=== PATIENT | female | born 1945 | race Caucasian/White ===

== ENCOUNTER → 2018-02-01 | Outpatient (CLI) | payer MEDICARE, OTHER | LOC: M.RAD 01-18 11:00 | DX: Z12.31 Encounter for screening mammogram for malignant neoplasm of breast (principal) ==

== ENCOUNTER → 2019-02-04 | Outpatient (CLI) | payer MEDICARE, OTHER | LOC: M.RAD 10:11 | DX: Z12.31 Encounter for screening mammogram for malignant neoplasm of breast (principal) ==

== ENCOUNTER → 2020-01-24 | Outpatient (CLI) | payer MEDICARE, OTHER | LOC: M.RAD 10:38 | PROVIDERS: ATTEND Family Medicine | DX: Z12.31 Encounter for screening mammogram for malignant neoplasm of breast (principal) ==

== ENCOUNTER 2020-05-04 17:50 | Inpatient (IN) | payer MEDICARE, OTHER ==
[~2020-05-04] VITALS: Ht 152.4 cm; Wt 36.3 kg
--- NOTE | ~2020-05-04 | EMS ---
[facility] [address] [place] [address] EMS Patient Care Report Name: MATT MACHUCA Room: [address]#: [id number] Admission: 05/04/20 Attend Phys: Elise Hicks MD Discharge: 05/06/20 Date of : 41 Report #: [id number] THIS REPORT FOR: //name// Report Transmitted: 05/06/2020 16:55 EMS Care Summary [facility] [employer] [facility] Incident [id number] @ 05/04/2020 16:47 Incident Location [address] [place] [address] Patient MATT MACHUCA Female, 74 Years 1945 Patient Address [address] [place] [address] Patient History Hypertension (HTN),Gastric Ulcer,Novel Coronavirus (COVID-19), Patient Allergies Gabapentin,Lipitor, Patient Medications Other, Chief Complaint LUQ and RUQ abdominal pain Disposition Transported No Lights/[place] Reason Abdominal Pain/Problems Transported To [facility] Narrative Upon arrival the patient was found sitting in a chair in her kitchen. The patient was found to be A&O x4 with a GCS of 15. The patient stated her abdomen had begun hurting last night but had gone away. She stated today the pain returned along with vomiting. The patient stated she had vomited 2 times and [place] [address] EMS Patient Care Report Name: SVENMATT Tico Room: [address] IN .R.#: [id number] Admission: 05/04/20 Attend Phys: Elise Hicks MD Discharge: 05/06/20 Date of : 41 Report #: [id number] then called for the ambulance. The patient stated her pain was in the URQ and ULQ rated 6/10. The patient stated currently she had no pain and no nausea but still wanted checked out. Patient advised a history of a perforated ulcer and was worried that it may be happening again. The patient noted tenderness in her LUQ and RLQ in the center. The patient was able to stand and walk with the assistance of a cane to the EMS cot waiting outside. The patient was secured to the cot via industrial cot straps. The patient requested transport to [place] but was denied due to weather and was transported to [facility]. During transport the patients pain returned. The patient sat straight up and clutching at her abdomen while wincing in pain. The patient rated her pain 8/10. The patient stated the pain felt like a stabbing in the center of the LUQ and RUQ. Fentanyl was administered and the patient noted a reduction in pain from 8/10 to 1/10 upon arrival to the hospital. Initial Vitals @17:02P: 102,R: 18,BP: 167/62,Pain: 2/10,GCS: 15,SpO2: 98,Revised Trauma: 12, @17:39P: 96,R: 16,BP: 162/81,Pain: 1/10,GCS: 15,SpO2: 98,Revised Trauma: 12, @17:18P: 122,R: 26,BP: 173/90,Pain: 8/10,GCS: 15,Glucose: 127,SpO2: 98,Revised Trauma: 12,PR Suspected: false Assessments @16:59MENTAL:Person Oriented,Time Oriented,Place Oriented,Event Oriented,SKIN:HEENT:Head/Face: No Abnormalities,Neck/Airway: No Abnormalities,LUNG SOUNDS:General: Vomiting,General: Other,Left Upper: Other,Left Upper: Guarding,Right Upper: Guarding,Right Upper: Other,ABDOMEN:General: Vomiting,General: Other,Left Upper: Other,Left Upper: Guarding,Right Upper: Guarding,Right Upper: Other,PELVIS//GI:No Abnormalities,EXTREMITIES:Left Arm: No Abnormalities,Right Arm: No Abnormalities,Left Leg: No Abnormalities,Right Leg: No Abnormalities,PULSE:Radial: 2+ Normal,NEURO:No Abnormalities, Impression Abdominal Pain Procedures @16:59ALS AssessmentResponse: UnchangedSucceeded@17:14Saline Lock 10cc (20 ga) Site: Hand-LeftResponse: UnchangedSucceeded@17:22Ondansetron - 4 Milligrams (mg) - Intramuscular (IM)Response: Unchanged@17:22Fentanyl - 50 Micrograms (mcg) - Intravenous (IV)Response: Improved Timeline 16:47,Call Received 16:47,Dispatched 16:51,En Route 16:58,At Patient 16:58,Initial Responder On Scene [address] [address] EMS Patient Care Report Name: MATT MACHUCA Room: [address] IN M.R.#: [id number] Admission: 05/04/20 Attend Phys: Elise Hicks MD Discharge: 05/06/20 Date of : 41 Report #: [id number] 16:58,On Scene 16:59,ALS Assessment,Response: UnchangedSucceeded, 17:02,BP: 167/62 M,PULSE: 102,RR: 18 R,SPO2: 98 Ox,ETCO2: ,BG: ,PAIN: 2,GCS: 15, 17:14,Saline Lock 10cc 20 ga Site: Hand-Left,Response: UnchangedSucceeded, 17:16,Depart Scene 17:18,BP: 173/90 M,PULSE: 122,RR: 26 R,SPO2: 98 Ox,ETCO2: ,B,PAIN: 8,GCS: 15, 17:22,Ondansetron - 4 Milligrams (mg) - Intramuscular (IM),Response: Unchanged 17:22,Fentanyl - 50 Micrograms (mcg) - Intravenous (IV),Response: Improved 17:39,BP: 162/81 M,PULSE: 96,RR: 16 R,SPO2: 98 Ox,ETCO2: ,BG: ,PAIN: 1,GCS: 15, 17:46,At Destination 17:46,Transfer Patient 18:24,Call Closed 18:24,In District Disclaimer v1.1 Copyright 2020 [employer] This EMS Care Summary contains data elements from the applicable legal record (which may be displayed differently). It is designed to provide pertinent information for the following purposes: continuity of care, clinical quality, and state data reporting. The complete legal record is available to ED staff and administrators of the receiving hospital in [employer] Patient Tracker. All data is provided "as is."
[2020-05-04 17:52] VITALS: BP 165/73
[2020-05-04] MEDS ORDERED: NORVASC 2.5 MG2.5 M1 PO ×3 (17:58→23:41)
[2020-05-04] MEDS ORDERED: CALCIUM CHLORIDE PO (17:58)
[2020-05-04] MEDS ORDERED: METFORMIN HCL500 MG PO (17:59)
[2020-05-04] MEDS ORDERED: ASA81BEC PO ×2 (17:59→23:34)
[2020-05-04] MEDS ORDERED: LISINOPRIL20 MG PO ×3 (17:59→23:35)
[2020-05-04] MEDS ORDERED: MELOXICAM15 MG PO ×3 (18:00→23:38)
[2020-05-04] MEDS ORDERED: LOPERAMIDE 2 MG2 M1 PO (18:00)
[2020-05-04] MEDS ORDERED: SIMVASTATIN80 MG PO ×3 (18:00→23:38)
[2020-05-04 18:28] LABS: URINE BILIRUBIN NEGATIVE (Negative); URINE BLOOD NEGATIVE (Negative); URINE CLARITY CLEAR; URINE COLOR YELLOW; URINE GLUCOSE-RANDOM NEGATIVE (Negative); URINE KETONES TRACE (Negative); URINE LEUKOCYTES-REFLEX NEGATIVE (Negative); URINE NITRITE-REFLEX NEGATIVE (Negative); URINE PROTEIN NEGATIVE (Negative); URINE UROBILINOGEN 0.2 E.U./dl (0.2-1.0)
[2020-05-04 18:48] LABS: HEMATOCRIT 39.2 % (37.0-47.0); HEMOGLOBIN 12.8 gm/dL (12.0-15.0); MCHC 32.7 g/dL (28.0-37.0); MCV 94.7 fL (80.0-100.0); MPV 7.6 fl. (7.2-11.1); NUCLEATED RBCS 0 /100WBC; PLATELET COUNT* 361 thou/uL (150-400); RBC 4.13 mil/uL (4.20-5.00); RDW-CV 14.6 % (10.5-14.5); WBC 12.9 thou/uL (4.0-11.0)
[2020-05-04 19:03] LABS: CALCIUM 9.3 mg/dL (8.5-10.1); CREATININE 0.8 mg/dL (0.6-1.3); POTASSIUM 4.1 mmol/L (3.5-5.1)
[2020-05-04 19:08] LABS: TOTAL BILIRUBIN 0.3 mg/dL (<0.1-1.0); TOTAL PROTEIN 6.7 g/dL (6.4-8.2)
[2020-05-04 19:18] LABS: ABSOLUTE LYMPHOCYTES 0.5 thou/uL (0.8-5.3); ABSOLUTE MONOCYTES 0.5 thou/uL (0.0-1.2); ABSOLUTE NEUTROPHILS 11.9 thou/uL (1.6-8.1)
[2020-05-04 19:19] LABS: ANISOCYTOSIS Occasional; PLATELET ESTIMATE ADEQUATE
[2020-05-04 21:07] VITALS: BP 149/77
[2020-05-04 21:15] VITALS: BP 149/77
[2020-05-04] MEDS ORDERED: NORVASC10 MG PO (23:14)
[2020-05-04] MEDS ORDERED: [UNRECOGNIZED DRUG - OTHER] PO ×2 (23:15→23:33)
[2020-05-04] MEDS ORDERED: ASPIRIN EC325 M1 PO (23:17)
[2020-05-04] MEDS ORDERED: 8 HOUR PAIN RE650 M1 PO (23:22)
[2020-05-04] MEDS ORDERED: METFORMIN HCL500 M3 PO ×2 (23:23→23:37)
[2020-05-04] MEDS ORDERED: LOPERAMIDE1 MG/7.5 M PO ×2 (23:27→23:39)
[2020-05-04] MEDS ORDERED: SUPER THERAVIT1 EACH PO ×2 (23:31→23:36)
[2020-05-04] MEDS ORDERED: TYLENOL325 MG PO (23:37)
[2020-05-05 00:29] LABS: HEMATOCRIT 36.5 % (37.0-47.0); MCHC 32.8 g/dL (28.0-37.0); MCV 94.4 fL (80.0-100.0); MPV 7.4 fl. (7.2-11.1); RBC 3.86 mil/uL (4.20-5.00); RDW-CV 14.8 % (10.5-14.5); WBC 8.4 thou/uL (4.0-11.0)
[2020-05-05 00:37] LABS: CALCIUM 8.8 mg/dL (8.5-10.1); CREATININE 0.7 mg/dL (0.6-1.3); POTASSIUM 3.7 mmol/L (3.5-5.1)
[2020-05-05 08:01] VITALS: BP 128/58
--- NOTE | 2020-05-05 11:05 | EKG ---
[place] [address] ELECTROCARDIOGRAM REPORT Name: MATT MACHUCA Room: [address] ADM IN ..#: [id number] Admission: 05/04/20 Attend Phys: Elise Hicks MD Discharge: Date of : 41 Date of Service: 05/04/20 1757 Report #: [id number] THIS REPORT FOR: //name// [facility] ED Test Date: 2020-05-04 Test Time: 17:57:01 Pat Name: MATT MACHUCA Department: Room: [facility] Gender: F Gas Adjuster: MAGGIE : 1945 Requested By: Kaylee Franco Order Number: [id number] MD: Hamzah Palomo Measurements Intervals [place] Rate: 92 P: 83 AL: 123 QRS: 52 QRSD: 96 T: -33 QT: 355 QTc: 440 Interpretive Statements Sinus rhythm Borderline repolarization abnormality Baseline wander in lead(s) V4 No previous ECG available for comparison Electronically Signed On 05-05-2020 11:04:50 PONDMAN by Hamzah Palomo [email or web address] <ELECTRONICALLY SIGNED> By: Hamzah Paloom MD, FAC 05/05/20 1104 1757 1757 Hamzah Palomo MD, [facility] /EPI
[2020-05-05 16:00] VITALS: BP 134/66
[2020-05-05 20:00] VITALS: BP 137/53
[2020-05-06 02:07] LABS: GLYCOHEMOGLOBIN (HGB A1C) 5.6 % (4.8-5.6)
[2020-05-06 04:42] VITALS: BP 166/70
[2020-05-06 06:42] LABS: ABSOLUTE BASOPHILS 0.1 thou/uL (0.0-0.2); ABSOLUTE MONOCYTES 0.7 thou/uL (0.0-1.2); ABSOLUTE NEUTROPHILS 7.4 thou/uL (1.6-8.1); BASOPHILS 0.8 %; EOSINOPHILS 0.1 %; HEMATOCRIT 37.3 % (37.0-47.0); HEMOGLOBIN 12.2 gm/dL (12.0-15.0); MCH 30.6 pg (26.0-34.0); MCHC 32.7 g/dL (28.0-37.0); MCV 93.8 fL (80.0-100.0); MONOCYTES 7.5 %; MPV 7.9 fl. (7.2-11.1); NUCLEATED RBCS 0 /100WBC; PLATELET COUNT* 391 thou/uL (150-400); POLYS 80.6 %; RBC 3.98 mil/uL (4.20-5.00); RDW-CV 14.4 % (10.5-14.5); WBC 9.2 thou/uL (4.0-11.0)
[2020-05-06 06:55] LABS: ALBUMIN 2.6 g/dL (3.4-5.0); CALCIUM 7.1 mg/dL (8.5-10.1); CREATININE 0.4 mg/dL (0.6-1.3); POTASSIUM 3.1 mmol/L (3.5-5.1); TOTAL BILIRUBIN 0.3 mg/dL (<0.1-1.0)
[2020-05-06 08:03] VITALS: BP 134/61
[2020-05-06 08:17] LABS: MAGNESIUM 1.2 mg/dL (1.8-2.4); PHOSPHORUS* 2.6 mg/dL (2.5-4.9)
== END 2020-05-06 12:57 | disposition short-term general hospital (02) | DRG 388 ==
LOC: M.ERS 17:50 → M.TBA-ER 20:21 → M.3W 20:21
PROVIDERS: Internal Medicine; Nurse Practitioner Family; ADMIT Family Medicine; ATTEND Family Medicine
DX: K56.2 Volvulus (principal); E43 Unspecified severe protein-calorie malnutrition; Z68.1 Body mass index [BMI] 19.9 or less, adult; K56.600 Partial intestinal obstruction, unspecified as to cause; E11.9 Type 2 diabetes mellitus without complications; I10 Essential (primary) hypertension; E78.5 Hyperlipidemia, unspecified; Z20.822 Contact with and (suspected) exposure to COVID-19; Z88.8 Allergy status to other drugs, medicaments and biological substances; Z79.82 Long term (current) use of aspirin; Z79.899 Other long term (current) drug therapy; Z79.84 Long term (current) use of oral hypoglycemic drugs